=== PATIENT | female | born 1945 | race Caucasian/White ===

== ENCOUNTER → 2018-01-27 | Outpatient (CLI) | payer MEDICARE, OTHER ==
--- NOTE | 2018-01-27 14:36 | RAD ---
Right lower extremity venous ultrasound, 01/27/2018 : History: Right lower extremity edema Duplex evaluation including grayscale, color flow and spectral Doppler analysis was performed. The femoral and popliteal veins show no filling defects to suggest DVT. The visualized deep veins in the right calf are unremarkable. IMPRESSION: There is no sonographic evidence of deep vein thrombosis in the right lower extremity Electronically signed by: Dao Patel MD (01/27/2018 2:33 PM) [facility]
== END | disposition home or self-care (01) ==
LOC: RAD 13:45
PROVIDERS: ATTEND Family Medicine
DX: R60.0 Localized edema (principal)
CPT/HCPCS: 93971

== ENCOUNTER 2019-07-31 15:27 | Emergency (ER) | payer MEDICARE, OTHER ==
[~2019-07-31] VITALS: Ht 160 cm; Wt 66.4 kg
[2019-07-31] MEDS ORDERED: IV NORMAL SALINE 1,000ML 1,000 ML IV ONE (16:15)
[2019-07-31 16:40] LABS: BASO % 1 % (0-3); EOS % 0 % (0-3); HEMATOCRIT 45.3 % (36.0-47.0); HEMOGLOBIN 15.5 g/dL (12.0-15.5); LYMPH # 0.5 x10^3/uL (1.0-4.8); LYMPH % 14 % (24-48); MEAN CORPUSCULAR HEMOGLOBIN 31 pg (25-35); MEAN CORPUSCULAR HGB CONC 34 g/dL (31-37); MEAN CORPUSCULAR VOLUME 89 fL (79-100); MONO # 0.3 x10^3/uL (0.0-1.1); MONO % 8 % (0-9); NEUT % 78 % (31-73); PLATELET COUNT 191 x10^3/uL (140-400); RED BLOOD COUNT 5.08 x10^6/uL (3.50-5.40); WHITE BLOOD COUNT 3.8 x10^3/uL (4.0-11.0)
--- NOTE | 2019-07-31 16:50 | RAD ---
CHEST AP ONLY History: Weakness. Fever. Comparison: None. Findings: No consolidation or pleural effusion. Normal heart size. No pneumothorax. Impression: 1. No acute cardiopulmonary process. Electronically signed by: Juan Manuel Noriega DO (07/31/2019 4:47 PM) [id number]
[2019-07-31 16:51] LABS: CREATININE 0.9 mg/dL (0.6-1.0); GFR 61.4; POTASSIUM 3.6 mmol/L (3.5-5.1)
[2019-07-31 16:56] LABS: COLOR,URINE YELLOW
[2019-07-31 16:57] LABS: BILIRUBIN,URINE NEG (NEG); CLARITY,URINE CLOUDY; GLUCOSE,URINE NEG (NEG); NITRITE,URINE NEG (NEG); UROBILINOGEN,URINE 0.2 mg/dL (0.2 mg/dL)
[2019-07-31 16:58] LABS: BACTERIA,URINE MOD /HPF (0-FEW); SQUAMOUS EPITHELIAL CELL,UR MOD /LPF
[2019-07-31 16:58] LABS: ALBUMIN/GLOBULIN RATIO 1.2 (1.0-1.7); TOTAL BILIRUBIN 0.6 mg/dL (0.2-1.0); TOTAL PROTEIN 7.4 g/dL (6.4-8.2)
[2019-07-31] MEDS ORDERED: CEPH-264 PO (17:12)
--- NOTE | 2019-07-31 17:12 | PHYS DOC ---
Past History Past Medical History: High Cholesterol, Other Additional Past Medical Histor: RLS/PRE-DIABETIC Past Surgical History: , Hysterectomy Smoking: Non-smoker Alcohol Use: None Drug Use: None General Adult EDM: Chief Complaint: FEVER HPI: HPI: 74-year-old female presents with report of bilateral leg pain and achiness which started yesterday. Patient reports she does have a history of restless leg syndrome and took her [id number] medication with some improvement. Patient had presented to her doctor's office today for evaluation and was noted to have a "low-grade fever ". PCPs office therefore instructed patient to present to the ER for further evaluation due to concerns for possible COVID-19. Patient denies any shortness of air. Denies cough. Denies trauma. Patient denies known exposure to COVID-19. Review of Systems: Review of Systems: Constitutional: Report of "low-grade fever " Eyes: Denies redness or discharge HENT: Denies nasal congestion or sore throat Respiratory: Denies cough or shortness of breath Cardiovascular: Denies chest pain or palpitations GI: Denies abdominal pain, nausea, or vomiting : Denies dysuria or hematuria Musculoskeletal: Denies back pain; reports bilateral leg pain Integument: Denies rash or skin lesion Neurologic: Denies headache, focal weakness or sensory changes Psychiatric: Denies depression or anxiety Complete systems were reviewed and found to be within normal limits, except as documented in this note. Current Medications: Current Meds: Current Medications Medications (Trade) Dose Ordered Sig/[facility] Start Time Stop Time Status Last Admin Dose Admin Sodium Chloride 1,000 ml @ 1,000 mls/hr 1X ONCE 07/31/19 16:15 07/31/19 17:14 07/31/19 16:21 1,000 MLS/HR Allergies: Allergies: Allergies Coded Allergies Type Severity Reaction Last Updated Verified Sulfa (Sulfonamide Antibiotics) Allergy Unknown 07/31/19 Yes Physical Exam: PE: Constitutional: Well developed, well nourished, no acute distress, non-toxic appearance HENT: Normocephalic, atraumatic Eyes: Conjunctiva normal, no discharge Neck: Normal range of motion, no tenderness, supple, no meningeal signs Cardiovascular: Heart rate normal, regular rhythm Lungs & Thorax: No respiratory distress, equal chest rise and fall Abdomen: Soft, no tenderness Skin: Warm, dry, no erythema, no rash Extremities: No calf tenderness, ROM intact, no edema Neurologic: Alert and oriented X 3, normal motor function, normal sensory function, no focal deficits noted Psychologic: Affect normal, judgement normal Current Patient Data: Labs: Laboratory Tests Test 07/31/19 16:15 07/31/19 16:23 White Blood Count 3.8 x10^3/uL (4.0-11.0) L Red Blood Count 5.08 x10^6/uL (3.50-5.40) Hemoglobin 15.5 g/dL (12.0-15.5) Hematocrit 45.3 % (36.0-47.0) Mean Corpuscular Volume 89 fL (79-100) Mean Corpuscular Hemoglobin 31 pg (25-35) Mean Corpuscular Hemoglobin Concent 34 g/dL (31-37) Red Cell Distribution Width 13.0 % (11.5-14.5) Platelet Count 191 x10^3/uL (140-400) Neutrophils (%) (Auto) 78 % (31-73) H Lymphocytes (%) (Auto) 14 % (24-48) L Monocytes (%) (Auto) 8 % (0-9) Eosinophils (%) (Auto) 0 % (0-3) Basophils (%) (Auto) 1 % (0-3) Neutrophils # (Auto) 3.0 x10^3uL (1.8-7.7) Lymphocytes # (Auto) 0.5 x10^3/uL (1.0-4.8) L Monocytes # (Auto) 0.3 x10^3/uL (0.0-1.1) Eosinophils # (Auto) 0.0 x10^3/uL (0.0-0.7) Basophils # (Auto) 0.0 x10^3/uL (0.0-0.2) Sodium Level 138 mmol/L (136-145) Potassium Level 3.6 mmol/L (3.5-5.1) Chloride Level 99 mmol/L (98-107) Carbon Dioxide Level 28 mmol/L (21-32) Anion Gap 11 (6-14) Blood Urea Nitrogen 15 mg/dL (7-20) Creatinine 0.9 mg/dL (0.6-1.0) Estimated GFR (Cockcroft-Gault) 61.4 BUN/Creatinine Ratio 17 (6-20) Glucose Level 126 mg/dL (70-99) H Lactic Acid Level 1.3 mmol/L (0.4-2.0) Calcium Level 9.0 mg/dL (8.5-10.1) Magnesium Level 2.1 mg/dL (1.8-2.4) Total Bilirubin 0.6 mg/dL (0.2-1.0) Aspartate Amino Transferase (AST) 51 U/L (15-37) H Alanine Aminotransferase (ALT) 58 U/L (14-59) Alkaline Phosphatase 51 U/L (46-116) Creatine Kinase 47 U/L (26-192) Total Protein 7.4 g/dL (6.4-8.2) Albumin 4.0 g/dL (3.4-5.0) Albumin/Globulin Ratio 1.2 (1.0-1.7) Urine Collection Type Unknown Urine Color Yellow Urine Clarity Cloudy Urine pH 6.0 Urine Specific [place] 1.020 Urine Protein Trace (NEG-TRACE) Urine Glucose (UA) Neg mg/dL (NEG) Urine Ketones (Stick) Trace mg/dL (NEG) Urine Blood Trace (NEG) Urine Nitrite Neg (NEG) Urine Bilirubin Neg (NEG) Urine Urobilinogen Dipstick 0.2 mg/dL (0.2 mg/dL) Urine Leukocyte Esterase Mod (NEG) Urine RBC 1-2 /HPF (0-2) Urine WBC 11-20 /HPF (0-4) Urine Squamous Epithelial Cells Mod /LPF Urine Bacteria Mod /HPF (0-FEW) Vital Signs: Vital Signs Date Time Temp Pulse Resp B/P (MAP) Pulse Ox O2 Delivery O2 Flow Rate FiO2 07/31/19 15:45 99.6 84 20 112/69 (83) 97 Room Air EKG: EKG: [] Radiology/Procedures: Radiology/Procedures: PROCEDURE: CHEST AP ONLY CHEST AP ONLY History: Weakness. Fever. Comparison: None. Findings: No consolidation or pleural effusion. Normal heart size. No pneumothorax. Impression: 1. No acute cardiopulmonary process. Electronically signed by: Juan Manuel Noriega DO (07/31/2019 4:47 PM) [id number] Course & Med Decision Making: Course & Med Decision Making Pertinent Labs and Imaging studies reviewed. (See chart for details) Patient presents with report of BLE achiness which improved after patient took her over the counter medication for known restless leg syndrome. Patient was noted to have a "low grade fever" when she had presented to her PCP's office. PCP's office sent patient to ED for further evaluation and treatment due to fear of COVID-19. Patient's symptoms seem less likely for COVID-19. Patient afebrile upon arrival to ED. Labs obtained and posted to chart. Slight leukopenia noted. Lactic acid WNL. UA with signs of infection with some contamination. CXR clear. Given reported fever combined with leukopenia, decision to empirically treat for presumed UTI. Rocephin initiated and Rx for Keflex provided. Patient stable for discharge home with outpatient follow-up with PCP. Discussed findings and plan with patient, who acknowledges understanding and agreement. COVID-19 CRITERIA: The patient was evaluated during the global COVID-19 pandemic, and that diagnosis was considered upon their initial presentation. Their evaluation, treatment and testing was consistent with current guidelines for patients who present with complaints or symptoms that may be related to COVID-19. Dragon Disclaimer: Dragon Disclaimer: This electronic medical record was generated, in whole or in part, using a voice recognition dictation system. Departure Departure: Impression: Primary Impression: UTI (urinary tract infection) Qualified Codes: N30.00 - Acute cystitis without hematuria Additional Impression: Hx of fever Disposition: 01 HOME/RESIDENCE PRIOR TO ADM Condition: STABLE Referrals: VITALIY HU MD (PCP) Patient Instructions: Fever, Adult, Kkff-kv-Hlze, Urinary Tract Infection, Iyog-ue-Xksu Scripts Cephalexin (KEFLEX) 500 Mg Capsule 1 CAP PO TID for UTI for 7 Days, #21 CAP 0 Refills Prov: LUL CHANEL DO 07/31/19 COVID-19 Assessment COVID-19 Patient Risks: Age 65 or older: Yes Sign of co-morbidity: No Exp to person + for COVID: No Exp to PUI: No Travel from affected area: No Lower respiratory symptoms: No Fever: Yes (reportedly "low grade") PPE Use: Full PPE with N95 mask or PAPR: Yes LUL CHANEL DO July 31, 2019 17:12
[2019-07-31] MEDS ORDERED: IV NORMAL SALINE 50ML 50 ML ONE (17:41)
[2019-07-31] MEDS ORDERED: cefTRIAXone SODIUM 1 GM VIAL ONE (17:41)
[2019-07-31 17:45] VITALS: BP 135/54
== END 2019-07-31 18:04 | disposition home or self-care (01) ==
LOC: ER 15:27
DX: N30.00 Acute cystitis without hematuria (principal); G25.81 Restless legs syndrome; E78.00 Pure hypercholesterolemia, unspecified; Z88.2 Allergy status to sulfonamides
CPT/HCPCS: 36415; 71045; 80053; 81001; 82550; 83605; 83735; 85025; 87086; 96365; 99285; J0696; J7030

== ENCOUNTER → 2020-03-31 | Outpatient (CLI) | payer MEDICARE, OTHER ==
[~2020-03-31] MED LIST: CEPH-264 PO
--- NOTE | 2020-03-31 08:42 | RAD ---
EXAM: XR FEMUR_LEFT 1 VIEW, XR LUMBAR SPINE 2-3V, XR KNEE _3 VIEWS_LT. HISTORY: Pain, lower extremity paresthesias. COMPARISON: None. FINDINGS: Lumbar alignment is normal. Osteopenia appears at least moderate. Vertebral body heights ar e maintained, and no fractures are identified. Degenerative disc disease is moderate at L5-S1. Other disc heights are maintained. Facet osteoarthritis appears moderate from L4 through S1. There is parti al sacralization of the right L5 transverse process. No fractures are appreciated in the left femur. The joint spaces and alignment of the left hip appear maintained. No fractures are appreciated about the left knee. Joint spaces and alignment are maintained. There is no joint effusion. IMPRESSION: 1. Moderate degenerative disc disease at L5-S1. 2. No fracture or significant degenerative change at the left hip or knee. Electronically signed by: Germania Perez MD (03/31/2020 8:40 AM) [id number]
== END ==
LOC: RAD 07:33
PROVIDERS: ATTEND Specialist
DX: M47.817 Spondylosis without myelopathy or radiculopathy, lumbosacral region (principal); M85.88 Other specified disorders of bone density and structure, other site; R20.2 Paresthesia of skin; M25.562 Pain in left knee
CPT/HCPCS: 72100; 73552; 73562

== ENCOUNTER → 2020-11-17 | Outpatient (CLI) | payer OTHER | LOC: LAB 14:18 | PROVIDERS: ATTEND Internal Medicine Cardiovascular Disease | DX: Z20.822 Contact with and (suspected) exposure to COVID-19 (principal) | CPT/HCPCS: U0003 ==

== ENCOUNTER → 2020-11-24 | Outpatient (CLI) | payer OTHER | LOC: LAB 11:15 | PROVIDERS: ATTEND Internal Medicine Cardiovascular Disease | DX: Z20.822 Contact with and (suspected) exposure to COVID-19 (principal) | CPT/HCPCS: U0003 ==